=== PATIENT | female | born 1955 | race Caucasian/White ===

== ENCOUNTER 2018-08-16 11:07 | Outpatient (CLI) | payer BC ==
--- NOTE | 2018-08-16 11:56 | CT ---
EXAM: Abdomen and pelvic CT scan with and without contrast: HISTORY: Hematuria COMPARISON: None FINDINGS: The visualized lung bases are clear. Liver: Several (3) cysts in the liver. Gallbladder:Unremarkable. Pancreas:Unremarkable Spleen:Unremarkable. Adrenal glands:Unremarkable. Kidneys:No renal calculus or acute obstruction.No solid or cystic mass. No evidence for bowel obstruction. No CT evidence for acute appendicitis. The urinary bladder is unremarkable. No abscess, adenopathy, or abnormal fluid collection within the abdomen or pelvis. IMPRESSION: 3 liver cysts. No renal calculus or acute obstruction or solid or cystic mass or other significant acute abnormality.
[2018-08-16] MEDS ORDERED: ISOVUE-370 76%-LOCM 1 ML ONE (15:06)
== END 2018-08-16 11:08 | disposition home or self-care (01) ==
LOC: BICCT 11:07
PROVIDERS: ATTEND Urology
DX: R31.29 Other microscopic hematuria (principal); N95.2 Postmenopausal atrophic vaginitis; K76.89 Other specified diseases of liver
CPT/HCPCS: 74178; 82565

== ENCOUNTER 2019-03-19 12:11 | Outpatient (CLI) | payer BC ==
--- NOTE | 2019-04-15 07:44 | MMO ---
Bilateral MAMMO Bilat Screen [facility]. CLINICAL HISTORY: Patient is 63 years old and is seen for screening. The patient has no family history of breast cancer. The patient has a history of malignant (generic) in the left breast at age 56 and thyroid cancer 2004. The patient has a history of left Stereotatic Biopsy at age 56 - malignant and left Lumpectomy at age 56 - malignant. VIEWS: The views performed were: bilateral craniocaudal with tomosynthesis and bilateral mediolateral oblique with tomosynthesis. FILMS COMPARED: The present examination has been compared to prior imaging studies performed at [facility] on 04/26/2012, and at [facility] on 12/01/2010, 11/30/2011 and 12/05/2011. This study has been interpreted with the assistance of computer-aided detection. MAMMOGRAM FINDINGS: There are scattered fibroglandular densities. There are no suspicious masses, suspicious calcifications, or new areas of architectural distortion. IMPRESSION: THERE IS NO MAMMOGRAPHIC EVIDENCE OF MALIGNANCY. A ROUTINE FOLLOW-UP MAMMOGRAM IN 1 YEAR IS RECOMMENDED. THE RESULTS OF THIS EXAM WERE SENT TO THE PATIENT. ACR BI-RADS Category 1 - Negative MAMMOGRAPHY NOTE: 1. A negative mammogram report should not delay a biopsy if a dominant of clinically suspicious mass is present. 2. Approximately 10% to 15% of breast cancers are not detected by mammography. 3. Adenosis and dense breasts may obscure an underlying neoplasm. Reported by: SELWYN ERIC MD Electonically Signed: [id number]
== END 2019-03-19 12:12 | disposition home or self-care (01) ==
LOC: BICMAMMO 12:11
PROVIDERS: ATTEND Family Medicine
DX: Z12.31 Encounter for screening mammogram for malignant neoplasm of breast (principal); Z85.3 Personal history of malignant neoplasm of breast; Z85.850 Personal history of malignant neoplasm of thyroid
CPT/HCPCS: 77063; 77067

== ENCOUNTER 2020-04-05 11:02 | Outpatient (CLI) | payer BC ==
--- NOTE | 2020-04-05 11:39 | MMO ---
Bilateral MAMMO Bilat Screen [facility]. CLINICAL HISTORY: Patient is 64 years old and is seen for screening. The patient has no family history of breast cancer. The patient has a history of malignant (generic) in the left breast at age 56 and thyroid cancer 2004. The patient has a history of left Stereotatic Biopsy at age 56 - malignant and left Lumpectomy at age 56 - malignant. VIEWS: The views performed were: bilateral craniocaudal with tomosynthesis and bilateral mediolateral oblique with tomosynthesis. FILMS COMPARED: The present examination has been compared to prior imaging studies performed at [facility] on 01/27/2016, 09/07/2016 and 08/30/2017, and at [facility] on 03/19/2019. This study has been interpreted with the assistance of computer-aided detection. MAMMOGRAM FINDINGS: There are scattered fibroglandular densities. Stable post op changes on left. There are no suspicious masses, suspicious calcifications, or new areas of architectural distortion. IMPRESSION: THERE IS NO MAMMOGRAPHIC EVIDENCE OF MALIGNANCY. A ROUTINE FOLLOW-UP MAMMOGRAM IN 1 YEAR IS RECOMMENDED. THE RESULTS OF THIS EXAM WERE SENT TO THE PATIENT. ACR BI-RADS Category 2 - Benign finding MAMMOGRAPHY NOTE: 1. A negative mammogram report should not delay a biopsy if a dominant of clinically suspicious mass is present. 2. Approximately 10% to 15% of breast cancers are not detected by mammography. 3. Adenosis and dense breasts may obscure an underlying neoplasm. Reported by: PIEDAD BERNARD MD Electonically Signed: [id number]
== END 2020-04-05 11:03 | disposition home or self-care (01) ==
LOC: BICMAMMO 11:02
PROVIDERS: ATTEND Family Medicine
DX: Z12.31 Encounter for screening mammogram for malignant neoplasm of breast (principal); Z85.3 Personal history of malignant neoplasm of breast; Z85.850 Personal history of malignant neoplasm of thyroid; Z98.890 Other specified postprocedural states
CPT/HCPCS: 77063; 77067

== ENCOUNTER 2021-05-19 11:09 | Outpatient (CLI) | payer BC | END 2021-05-19 11:10 | disposition home or self-care (01) | LOC: BICMAMMO 11:09 | PROVIDERS: ATTEND Family Medicine | DX: Z12.31 Encounter for screening mammogram for malignant neoplasm of breast (principal); Z80.3 Family history of malignant neoplasm of breast; Z98.890 Other specified postprocedural states | CPT/HCPCS: 77063; 77067 ==

== ENCOUNTER 2022-07-28 12:18 | Outpatient (CLI) | payer BC | END 2022-07-28 12:19 | disposition home or self-care (01) | LOC: BICMAMMO 12:18 | PROVIDERS: ATTEND Family Medicine | DX: Z12.31 Encounter for screening mammogram for malignant neoplasm of breast (principal); Z85.3 Personal history of malignant neoplasm of breast; Z90.12 Acquired absence of left breast and nipple; Z91.89 Other specified personal risk factors, not elsewhere classified | CPT/HCPCS: 77063; 77067 ==

== ENCOUNTER 2024-05-27 11:58 | Outpatient (CLI) | payer BC ==
[~2024-05-27 11:58] MED LIST: GASTROGRAFIN 30 ML BOT ONE; Iopamidol 370 76% 100 ML VIAL ONE
== END 2024-05-27 11:59 | disposition home or self-care (01) ==
LOC: CT 11:58
PROVIDERS: ATTEND Internal Medicine
DX: K50.019 Crohn's disease of small intestine with unspecified complications (principal)
CPT/HCPCS: 74177; 82565